=== PATIENT | male | born 1980 | race Caucasian/White ===

== ENCOUNTER 2017-05-15 22:47 | Emergency (ER) | payer BC ==
[~2017-05-15] VITALS: Ht 180.3 cm; Wt 99.8 kg
[2017-05-15 22:52] VITALS: BP_SYST 158; BP_SYST 163
--- NOTE | 2017-05-15 22:58 | NUR ---
EKG performed at by FIONA Rey. Physician given copy of EKG for review.
--- NOTE | 2017-05-15 22:58 | NUR ---
tPatient triaged and placed in waiting room. VSS and patient appears in no acute distress at this time. Accompanied by , awaiting available bed, and MD notified of need for MSE.
--- NOTE | 2017-05-15 23:06 | NUR ---
Patient to ER bed 06 to gown for evaluation. Side rails up. Report given to FIONA Toribio
--- NOTE | 2017-05-15 23:10 | NUR ---
Patient arrived to ED a/o x 4 with c/o anxiety like symptoms. Reports intermitent SOB with heart palpitations x 1 day. Denies CP. Denies Hx of anxiety. EKG demonstrates sinus rhythm. Respirations even and unlabored. Patient reports increased stress at home, because he is expecting of first child.
--- NOTE | 2017-05-15 23:12 | NUR ---
ED MD Rai at bedside for medical evaluation.
[2017-05-15 23:45] VITALS: BP_SYST 144
[2017-05-15] MEDS ORDERED: LORazepam 1 MG TABLET PO ONE (23:45)
--- NOTE | 2017-05-15 23:45 | NUR ---
Patient given written and verbal discharge instructions and verbalizes understanding. ER MD discussed with patient the results and treatment provided. Patient in stable condition. ID arm band removed. Rx of Xanax given. Patient educated on pain management and to follow up with PMD. Pain Scale 0/10 at this time. Opportunity for questions provided and answered. Medication side effect fact sheet provided.
== END 2017-05-15 23:45 | disposition home or self-care (01) ==
LOC: SED 22:47
DX: F41.9 Anxiety disorder, unspecified (principal); R03.0 Elevated blood-pressure reading, without diagnosis of hypertension
CPT/HCPCS: 93005; 99284

== ENCOUNTER 2017-05-17 10:33 | Emergency (ER) | payer BC ==
[~2017-05-17] VITALS: Ht 180.3 cm; Wt 102.1 kg
[2017-05-17 10:35] VITALS: BP_SYST 131
[2017-05-17] MEDS ORDERED: NACL 0.9% 1,000 ML IV ONE (10:45)
[2017-05-17 11:19] LABS: CALCIUM 9.5 mg/dL (8.4-11.0); CREATININE 1.05 mg/dL (0.55-1.30); POTASSIUM 3.6 mmol/L (3.5-5.1)
[2017-05-17 11:24] LABS: ALBUMIN 4.3 g/dL (3.4-4.8); BASOPHILS % (AUTO) 0.2 % (0.0-2.0); EOSINOPHILS # (AUTO) 0.2 K/uL (0.0-0.4); EOSINOPHILS % (AUTO) 1.6 % (0.0-4.0); HEMATOCRIT 51.3 % (36-54); HEMOGLOBIN 16.6 g/dL (14.0-18.0); LYMPHOCYTES # (AUTO) 1.5 K/uL (1.0-5.5); LYMPHOCYTES % (AUTO) 11.8 % (20.5-51.5); MEAN CORPUSCULAR HEMOGLOBIN 29 pg (27-31); MEAN CORPUSCULAR HGB CONC 33 % (32-36); MEAN CORPUSCULAR VOLUME 89 fL (79.0-98.0); MONOCYTES # (AUTO) 0.5 K/uL (0.0-1.0); MONOCYTES % (AUTO) 3.9 % (1.7-9.3); NEUTROPHILS # (AUTO) 10.8 K/uL (1.8-7.7); PLATELET COUNT (AUTO) 281 K/uL (130-430); RED BLOOD CELL COUNT(AUTO) 5.76 MIL/uL (4.2-6.2); RED CELL DISTRIBUTION WIDTH 12.5 % (9.0-15.0); TOTAL BILIRUBIN 0.9 mg/dL (0.0-1.0)
[2017-05-17] MEDS ORDERED: LORazepam 2 MG/ML VIAL (FOR ER USE) IVP ONE ×2 (11:30→12:30)
[2017-05-17 11:38] LABS: NEUTROPHILS % (AUTO) 82.5 % (40.0-70.0)
[2017-05-17 13:10] VITALS: BP_SYST 128
== END 2017-05-17 13:10 | disposition home or self-care (01) ==
LOC: SED 10:33
DX: F41.9 Anxiety disorder, unspecified (principal)
CPT/HCPCS: 36415; 80053; 82009; 85025; 93005; 96361; 96374; 96376; 99285; J2060; J7030